=== PATIENT | female | born 1995 | race African-American/Black ===

== ENCOUNTER 2020-11-22 18:16 | Emergency (ER) ==
[2020-11-22 18:58] LABS: Bilirubin Negative (Negative); Blood, Urine Negative (Negative); Glucose, Urine (Dipstick) Negative (Negative); Ketone, Urine 15 mg/dL (Negative); Leukocyte Negative (Negative); Nitrite Negative (Negative); Protein, Urine (Dipstick) 30 mg/dL (Neg-Trace); Urobilinogen 0.2 mg/dL (Less than 2); pH, Urine 5.5 (5.0-9.0)
[2020-11-22 18:59] LABS: Clarity Hazy (Clear); Specific Gravity, Urine 1.031 (1.002-1.036)
[2020-11-22 19:00] LABS: Pregnancy Test - Urine (BHCG) POSITIVE (Negative); Pregu Control Background? CLEAR/WHITE (CLR/WHITE); Pregu Control Bar Appear? YES (CONTROL BAR); Specific Gravity 1.031 (1.002-1.036)
[2020-11-22] MEDS ORDERED: Ondansetron ODT 4 MG TAB ONE (19:08)
[2020-11-22 19:12] LABS: Bacteria/HPF 1+ HPF (None Seen); RBC/HPF None Seen HPF (0-3)
== END 2020-11-22 19:24 | disposition home or self-care (01) ==
LOC: MADERS 18:16
DX: O21.9 Vomiting of pregnancy, unspecified (principal); O99.331 Smoking (tobacco) complicating pregnancy, first trimester; F17.210 Nicotine dependence, cigarettes, uncomplicated; R10.813 Right lower quadrant abdominal tenderness
CPT/HCPCS: 81003; 81015; 81025; 99284; Q0162